=== PATIENT | female | born 1985 | race Caucasian/White ===

== ENCOUNTER 2019-01-08 22:51 | Inpatient (IN) ==
[2019-01-09] MEDS ORDERED: Mag Hydrox/Al Hydrox/Simeth 30 ML UDC PO PRN (00:53)
[2019-01-09] MEDS ORDERED: Acetaminophen 325 MG TABLET PO PRN (00:53)
[2019-01-09] MEDS ORDERED: Haloperidol Lactate 5 MG/ML VIAL IM PRN (00:53)
[2019-01-09] MEDS ORDERED: *HR* LORazepam 2 MG/ML VIAL IM PRN (00:53)
[2019-01-09] MEDS ORDERED: *HR* LORazepam 1 MG TABLET PO PRN (00:53)
[2019-01-09] MEDS ORDERED: MOM Conc 10 ML UD.LIQ PO PRN (00:53)
[2019-01-09] MEDS: cephALEXin 500 MG CAPSULE PO SCH ×3 (09:05→21:41)
[2019-01-09] MEDS: hydrOXYzine pamoate 25 MG CAPSULE PO PRN ×3 (09:06→21:44)
[2019-01-09] MEDS: Famotidine 20 MG TABLET PO SCH (09:22)
[2019-01-09] MEDS: traZODone 50 MG TABLET PO PRN (21:44)
[2019-01-10] MEDS: cephALEXin 500 MG CAPSULE PO SCH ×3 (08:46→20:43)
[2019-01-10] MEDS: Famotidine 20 MG TABLET PO SCH (08:46)
[2019-01-10] MEDS: hydrOXYzine pamoate 25 MG CAPSULE PO PRN ×2 (18:53→20:43)
[2019-01-10] MEDS: traZODone 50 MG TABLET PO PRN (20:44)
[2019-01-11] MEDS: hydrOXYzine pamoate 25 MG CAPSULE PO PRN ×2 (06:30→11:29)
[2019-01-11] MEDS: Famotidine 20 MG TABLET PO SCH (06:30)
[2019-01-11] MEDS: cephALEXin 500 MG CAPSULE PO SCH (08:05)
[2019-01-11 09:24] VITALS: BP 121/83
== END 2019-01-11 12:40 | disposition home or self-care (01) | DRG 751 ==
LOC: EMEROOARM 22:51 → SUATTDRO 01-09 00:51 → 1ANU 01-09 00:51
PROVIDERS: ADMIT Psychiatry & Neurology Psychiatry; ATTEND Psychiatry & Neurology Psychiatry